=== PATIENT | female | born 2000 | race Two or more races ===

== ENCOUNTER 2021-10-10 16:28 | Outpatient (CLI) | payer OTHER | END 2021-10-10 16:36 | disposition home or self-care (01) | LOC: RAD 16:28 | DX: R76.11 Nonspecific reaction to tuberculin skin test without active tuberculosis (principal) ==

== ENCOUNTER → 2022-10-24 | Outpatient (CLI) | payer OTHER | END | disposition home or self-care (01) | LOC: RAD 13:23 | DX: R07.9 Chest pain, unspecified (principal) ==